=== PATIENT | female | born 1965 | race American Indian/Alaskan Native ===

== ENCOUNTER 2016-08-11 10:34 | Outpatient (CLI) | payer OTHER ==
--- NOTE | 2016-08-11 13:06 | XRay Report ---
Right hip 2 views: History: Mental. Findings: No bony or articular abnormality. No fracture dislocation or soft tissue calcification. Impression: Essentially negative right hip.
--- NOTE | 2016-08-11 13:07 | XRay Report ---
Right hand 2 views: History: Mantle. Findings: No bony or articular abnormality. No fracture dislocation or periosteal reaction. No soft tissue calcification. Impression: Essentially negative right hand.
== END 2016-08-11 10:35 | disposition home or self-care (01) ==
LOC: XRAY 10:34
PROVIDERS: ATTEND Internal Medicine
DX: M25.551 Pain in right hip (principal); M79.641 Pain in right hand